=== PATIENT | male | born 1980 | race Caucasian/White ===

== ENCOUNTER 2018-12-17 22:42 | Inpatient (IN) | payer BC ==
[~2018-12-17] VITALS: Ht 175.2 cm; Wt 101.0 kg
--- NOTE | ~2018-12-17 | EKG ---
[place], [place] ELECTROCARDIOGRAM REPORT NAME: HOSSEIN WESTFALL UNIT #: [id number] ROOM: 412 DOCTOR: OLI DRAFT REPORT BIRTHDATE: [birth year] 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
--- NOTE | ~2018-12-17 | ST ---
[place], [place] EXERCISE STRESS TEST REPORT NAME: HOSSEIN WESTFALL UNIT #: [id number] ROOM: 412 DOCTOR: RUDDY HANNA MD BIRTHDATE: [birth year] DOS: 12/18/2018 EXERCISE TREADMILL STRESS TEST REPORT REFERRING PHYSICIAN: Dr. Arriaga. INDICATION: Central chest pain. FINDINGS: The patient underwent standard Sigifredo protocol exercise stress treadmill testing with accompanying nuclear imaging. The patient's baseline EKG is sinus bradycardia with a heart rate of 54 with blood pressure 110/70. The patient's peak heart rate was 167 with a peak blood pressure of 158/58. The patient's peak heart rate of 167 represents 93% of maximum predicted. The patient exercised for 13 minutes and 30 seconds. The patient's Garcia Treadmill score was 13.5. The patient had no arrhythmias, ischemic changes or chest pain. SUMMARY OF FINDINGS: 1. Negative exercise treadmill stress to a high level of exertion. 2. Garcia Treadmill score of 13.5 portending a very low risk prognosis. 3. No symptoms were noted. 4. Please see separate report for perfusion scan imaging results. RUDDY HANNA MD CM:STRESS:EXERCISE STRESS TEST REPORT [id number] RUDDY HANNA MD
--- NOTE | ~2018-12-17 | EKG ---
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
--- NOTE | ~2018-12-17 | EKG ---
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
[~2018-12-17 22:42] MED LIST: MOTRIN800 MG PO
[2018-12-17 23:02] LABS: BASO # 0.1 10*3/uL (0.0-0.1); BASO % 0.9 % (0.0-1.0); EOS # 0.1 10*3/uL (0.0-0.4); EOS % 1.2 % (1.0-4.0); HEMOGLOBIN 15.5 g/dl (14.0-18.0); LYMPH # 2.2 10*3/uL (1.3-4.4); LYMPH % 38.3 % (27.0-41.0); MEAN CELL VOLUME 86.5 fl (80.0-94.0); MEAN CORPUSCULAR HGB 29.1 pg (27.0-31.0); MEAN CORPUSCULAR HGB CONC 33.7 g/dl (33.0-37.0); MEAN PLATELET VOLUME 8.9 fl (9.6-12.3); MONO # 0.5 10*3/uL (0.1-1.0); MONO % 7.8 % (3.0-9.0); NEUT % 51.6 % (47.0-73.0); PLATELET COUNT AUTOMATED 210 10*3/uL (130-400); RED BLOOD COUNT 5.32 10*6/uL (4.50-5.90); RED CELL DISTRI WIDTH 12.2 % (0-14.5); WHITE BLOOD COUNT 5.8 10*3/uL (4.8-10.8)
[2018-12-17 23:21] VITALS: BP 146/77; BP 146/773
[2018-12-17 23:27] LABS: ALKALINE PHOSPHATASE 48 U/L (45-117); CHLORIDE 105 mmol/L (98-107); POTASSIUM 3.3 mmol/L (3.5-5.1); SGOT/AST 21 IU/L (3-35); SGPT/ALT 28 U/L (12-78); SODIUM 137 mmol/L (136-145); TOTAL PROTEIN 7.5 gm/dL (6.4-8.2)
[2018-12-18 00:07] LABS: ALBUMIN 4.1 gm/dl (3.1-4.5); BUN 14 mg/dl (7-24); CREATININE 1.07 mg/dL (0.70-1.30)
[2018-12-18 00:09] LABS: TROPONIN I < 0.015 ng/ml (<0.045)
[2018-12-18 02:09] VITALS: BP 125/78
[2018-12-18 02:10] VITALS: BP 119/71
[2018-12-18] MEDS ORDERED: RAMIPRIL5 MG PO (02:15)
--- NOTE | 2018-12-18 02:40 | NUR ---
DR MAGUIRE CALLED TO VERIFY ADMIT TO ORDER. ORDER STATES THAT PATIENT IS ADMITED OBSERVATION A MED/SURG PATIENT. GRADED STRESS TEST ALSO ORDERED FOR MORNING. PATIENT COMES TO THE HOSPITAL FOR CHEST PAIN. DR MAGUIRE STATES THAT TYPICALLY OBERVATION PATIENTS ARE NOT ORDERED STRESS TESTS. HE ASKED WHAT CARDIOLOGY SAID ABOUT PATIENT. I TOLD HIM THERE IS NO RAILROAD POLICE OFFICER CONSULT ORDERED. DR MAGUIRE STATES THAT THE ADMISSION ORDER WILL REMAIN THE SAME AND WILL BE ADDRESSED WITH DR GOYAL IN THE MORNING. PATIENT PLACED ON MONITOR. 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
--- NOTE | 2018-12-18 05:03 | NUR ---
PATIENT RESTING WITH EYES CLOSED. RESPIRATIONS EASY AND UNLABORED ON ROOM AIR. CALL LIGHT WITHIN REACH. WILL MONITOR.
[2018-12-18 07:34] LABS: BUN 11 mg/dl (7-24); CHLORIDE 107 mmol/L (98-107); CHOLESTEROL 218 mg/dL (<200); CREATININE 0.88 mg/dL (0.70-1.30); HDL CHOLESTEROL 41 mg/dl (40-60); LDL CHOLESTEROL 161 mg/dL (9-159); PHOSPHOROUS 4.4 mg/dL (2.5-4.9); POTASSIUM 4.1 mmol/L (3.5-5.1); SODIUM 138 mmol/L (136-145); TRIGLYCERIDES 82 mg/dl (<150); VLDL CHOLESTEROL 16 mg/dL (6-40)
[2018-12-18 08:00] VITALS: BP 118/72
--- NOTE | 2018-12-18 10:35 | NUR ---
INFORMED CONSENT OBTAINED FOR A CARDIOLITE STRESS TEST WITH DR. HANNA. RESTING EKG SINUS RUTH WITH A SUPINE HT RT OF 54, AND BP OF 110/70. AND A HT RT OF 55, WITH A BP OF 106/74 IN THE STANDING POSITION. PT COMPLETED 13:30 OF A ANDREA PROTOCOL WITH 1:30 INTO STAGE V AT 5.0 MPH AND 18% GRADE. REACHED A PEAK HT RT OF 167 WHICH IS 93% OF PREDICTED MAX WITH A PEAK BP OF 158/58. TEST TERMINATED DUE TO FATIGUE. DENIES CHEST PAIN/HEAVINESS. HAS A HIGH EXERCISE TOLERANCE. LAST RECOVERY HT RT OF 99, WITH A BP OF 118/66. AWAITING NUCLEAR IMAGING IN STABLE CONDITION.
[2018-12-18 12:00] VITALS: BP 110/67
[2018-12-18 16:00] VITALS: BP 112/67
[2018-12-18] MEDS ORDERED: FAMOTIDINE20 M1 PO (19:43)
[2018-12-18] MEDS ORDERED: ATORVASTATIN CA20 M1 PO (19:43)
--- NOTE | 2018-12-18 20:07 | NUR ---
PATIENT IV AND HEART MONITOR REMOVED FOR DISCHARGE. EDUCATED ON DISCHARGE INSTRUCTIONS-PATIENT STATES THAT HE UNDERSTANDS. WAITING FOR HIS TO PICK HIM UP.
--- NOTE | 2018-12-18 20:24 | NUR ---
Discharge instructions reviewed with patient/family. Patient receptive and verbalizes understanding. Follow-up care arranged. Written instructions given to patient/family. DISCHARGED TO HOME WITH . JERONIMO MCLEAN
== END 2018-12-18 20:24 | disposition home or self-care (01) | DRG 282 ==
LOC: ED 22:42 → EDHOLD 12-18 01:07 → 4E 12-18 01:24
PROVIDERS: Student in an Organized Health Care Education/Training Program; ADMIT Internal Medicine
PROC: 3E073KZ Introduction of Other Diagnostic Substance into Coronary Artery, Percutaneous Approach (ICD-10-PCS; principal; 2018-12-18)
PROC: 4A02XM4 Measurement of Cardiac Total Activity, External Approach (ICD-10-PCS; principal; 2018-12-18)
DX: I21.9 Acute myocardial infarction, unspecified (principal); M94.0 Chondrocostal junction syndrome [Tietze]; F41.9 Anxiety disorder, unspecified; I10 Essential (primary) hypertension; K21.9 Gastro-esophageal reflux disease without esophagitis; E78.5 Hyperlipidemia, unspecified; E87.6 Hypokalemia; E83.41 Hypermagnesemia; E66.09 Other obesity due to excess calories; Z72.0 Tobacco use; Z90.89 Acquired absence of other organs; Z82.49 Family history of ischemic heart disease and other diseases of the circulatory system; Z91.030 Bee allergy status; Z79.899 Other long term (current) drug therapy; Z71.6 Tobacco abuse counseling; Z68.32 Body mass index [BMI] 32.0-32.9, adult